=== PATIENT | female | born 1960 | race Caucasian/White ===

== ENCOUNTER 2018-01-25 15:17 | Emergency (ER) | payer OTHER ==
--- NOTE | 2018-01-25 15:24 | EDM.PDOC ---
ED HPI GENERAL MEDICAL PROBLEM - General Chief Complaint: Laceration Stated Complaint: FISH HOOK IN RT HAND [id number] Time Seen by Provider: 01/25/18 15:24 Source of Information: Reports: Patient, RN History Limitations: Reports: No Limitations - History of Present Illness INITIAL COMMENTS - FREE TEXT/NARRATIVE: Fish hook in Rt hand. Denies any other injury or complaint. Tetanus vaccine is less than 10yrs per pt. Onset: Today Duration: Constant Location: Reports: Upper Extremity, Right Quality: Reports: Ache Severity: Moderate Improves with: Reports: None Worsens with: Reports: None Associated Symptoms: Reports: No Other Symptoms Social & Family History - Family History Family Medical History: Noncontributory - Living Situation & Occupation Living situation: Reports: , with Spouse ED ROS GENERAL - Review of Systems Review Of Systems: ROS reveals no pertinent complaints other than HPI. ED EXAM, SKIN/RASH Exam: See Below Exam Limited By: No Limitations General Appearance: Alert, WD/WN, No Apparent Distress Head: Atraumatic, Normocephalic Respiratory/Chest: No Respiratory Distress Cardiovascular: Normal Peripheral Pulses Extremities: Normal Range of Motion, Normal Capillary Refill, Other (fish hook in dorsum of right hand) Neurological: Alert, Oriented, Normal Cognition, Normal Gait, No Motor/Sensory Deficits Psychiatric: Normal Mood Skin: Warm, Dry. No: Erythema ED SKIN PROCEDURES - Foreign Body Removal Indication:: Fish hook in Rt hand. Consent Obtained:: Patient Performing Doctor:: Darrius Domínguez Anesthesia Type: Local (Lidocaine 1% plain 4cc) Findings:: Fish hook removal Rt dorsal hand. Area cleaned and prepped by RN with hibiclens and sterile water. Area of fish hook locally blocked with lidocaine 1% 5cc. Using clean tech. the eye of the hook and lure were cut free and removed with side cutter. The hook shank grasped with needle nosed plier and advanced until the hook and santo were exposed through the skin and removed with side cutter. The remaining hook backed out the entry wound. No residual foreign body. Wound was cleansed, and dried, bacitracin ointment applied, and dressing by RN. No complications. Complications:: No Course - Orders/Labs/Meds Orders: Active Orders 24 hr Category Date Time Status Bacitracin [Bacitracin Oint 1 GM] Med 01/25/18 15:28 Once 1 dose TOP ONETIME ONE Lidocaine 1% [Xylocaine-MPF 1%] Med 01/25/18 15:28 Once 30 ml INJECT ONETIME ONE Medication Orders Bacitracin (Bacitracin Oint 1 Gm) 1 dose TOP ONETIME ONE Stop: 01/25/18 15:29 Lidocaine HCl (Xylocaine-Mpf 1%) 30 ml INJECT ONETIME ONE Stop: 01/25/18 15:29 Meds: Medications Generic Name Dose Route Start Last Admin Trade Name Elissa PRN Reason Stop Dose Admin Bacitracin 1 dose 01/25/18 15:28 Bacitracin Oint 1 Gm TOP 01/25/18 15:29 ONETIME ONE Lidocaine HCl 30 ml 01/25/18 15:28 Xylocaine-Mpf 1% INJECT 01/25/18 15:29 ONETIME ONE Departure - Departure Time of Disposition: 16:00 Disposition: Home, Self-Care 01 Condition: Good Clinical Impression: Fish hook injury of hand Qualifiers: Encounter type: initial encounter Laterality: right Qualified Code(s): S69.91XA - Unspecified injury of right wrist, hand and finger(s), initial encounter - Discharge Information Instructions: Puncture Wound, [id number] Forms: ED Department Discharge Additional Instructions: Use over the counter Bacitracin ointment to the right hand wound twice a day for 5 days. Follow up in clinic or ER if any signs of infection develop. - My Orders Last 24 Hours: My Active Orders 01/25/18 15:28 Bacitracin [Bacitracin Oint 1 GM] 1 dose TOP ONETIME ONE Lidocaine 1% [Xylocaine-MPF 1%] 30 ml INJECT ONETIME ONE - Assessment/Plan Last 24 Hours: My Active Orders 01/25/18 15:28 Bacitracin [Bacitracin Oint 1 GM] 1 dose TOP ONETIME ONE Lidocaine 1% [Xylocaine-MPF 1%] 30 ml INJECT ONETIME ONE
[2018-01-25] MEDS ORDERED: Lidocaine 1% 30 ML SDV INJECT ONE (15:28)
[2018-01-25] MEDS ORDERED: Bacitracin Oint 1 GM U/D Packet TOP ONE (15:28)
== END 2018-01-25 16:05 | disposition home or self-care (01) ==
LOC: DL.ED 15:17
DX: S60.551A Superficial foreign body of right hand, initial encounter (principal); W45.8XXA Other foreign body or object entering through skin, initial encounter
CPT/HCPCS: 99282